=== PATIENT | male | born 1980 | race Caucasian/White ===

== ENCOUNTER 2016-07-24 11:42 | Emergency (ER) | payer MEDICAID | END 2016-07-24 13:05 | disposition home or self-care (01) | DX: S93.601A Unspecified sprain of right foot, initial encounter (principal); X50.9XXA Other and unspecified overexertion or strenuous movements or postures, initial encounter; Y93.39 Activity, other involving climbing, rappelling and jumping off ==

== ENCOUNTER 2017-09-11 08:25 | Emergency (ER) | payer MEDICAID ==
--- NOTE | 2017-09-11 08:51 | ED Physician Documentation ---
PD HPI UPPER EXT INJURY - Stated complaint Stated Complaint: R HAND INJ - Chief complaint Chief Complaint: Ext Problem - History obtained from History obtained from: Patient - History of Present Illness Location: Right, Wrist Type of injury: Fall Where injury occurred: Street Timing - onset: Enter time (1744), Yesterday Timing - duration: Days (1) Timing - details: Abrupt onset, Still present in ED Improved by: Rest, Ice, Immobilization Worsened by: Moving, Palpating Associated symptoms: Numbness, Swelling Contributing factors: No: Anticoagulated Similar symptoms before: Diagnosis (wrist sprain) Recently seen: Not recently seen - Additonal information Additional information: 37-year-old male was skateboarding yesterday and fell he fell onto his right outstretched hand has pain in the wrist and over the thenar eminence and some numbness to the thumb as well. He is able to move his fingers he is able to move his shoulder and elbow without difficulty. He did have an abrasion to the left knee as well he does have a bit of a limp does not feel like there is anything broken. He has never had a broken bone previously. Review of Systems Constitutional: denies: Fever Eyes: denies: Decreased vision Ears: denies: Ear pain Nose: denies: Congestion Throat: denies: Sore throat Respiratory: denies: Dyspnea, Cough GI: denies: Vomiting Skin: denies: Rash Musculoskeletal: reports: Extremity pain, Joint pain, Joint swelling, Pain with weight bearing. denies: Neck pain, Back pain Neurologic: denies: Generalized weakness, Focal weakness, Numbness PD PAST MEDICAL HISTORY - Past Medical History Cardiovascular: Other - Past Surgical History Past Surgical History: Yes Cardiovascular: Other - Present Medications Home Medications: Ambulatory Orders Medication Instructions Recorded Confirmed HYDROcod/ACETAM 5/325 [[place] 5/325] 1 - 2 ea PO Q6H PRN #15 tablet 09/11/17 - Allergies Allergies/Adverse Reactions: Allergies Allergy/AdvReac Type Severity Reaction Status Date / Time No Known Drug Allergies Allergy Verified 09/11/17 08:33 - Social History Does the pt smoke?: No Smoking Status: Never smoker Does the pt drink ETOH?: Yes Does the pt have substance abuse?: Yes - Immunizations Immunizations are current?: Yes - POLST Patient has POLST: No PD ED PE NORMAL - Vitals Vital signs reviewed: Yes (Normal) - General General: Alert and oriented X 3, No acute distress, Well developed/nourished - HEENT HEENT: Atraumatic, PERRL - Neck Neck: Supple, no meningeal sign - Respiratory Respiratory: No respiratory distress - Derm Derm: Normal color, Warm and dry, No rash - Extremities Extremities: No deformity, No edema, Other (There is swelling to the volar surface of the wrist and the thenar eminence. There is pain over the anatomic snuffbox and restriction of movement of the wrist to flexion extension secondary to pain. He is able flex and extend the fingers with pain he has no pain over the elbow or shoulder. Examination of the left knee reveals an abrasion over the patella with some mild point tenderness associated with that there is no evidence of a joint effusion and the ligaments are stable to testing. He has good range of motion.) - Neuro Neuro: No motor deficit, No sensory deficit Eye Opening: Spontaneous Motor: Obeys Commands Verbal: Oriented GCS Score: 15 - Psych Psych: Normal mood, Normal affect Results - Vitals Vitals: Vital Signs - 24 hr 09/11/ 08:31 Temperature 36.6 C Heart Rate 75 Respiratory 16 Rate Blood Pressure 122/72 O2 Saturation 98 Oxygen O2 Source Room air - Rads (name of study) right wrist Radiology: Prelim report reviewed (Impression: Interval new acute versus subacute transverse fracture with minimal displacement in the distal third of the scaphoid. No dislocation or subluxation.), EMP read indepedently, See rad report PD MEDICAL DECISION MAKING - ED course Complexity details: reviewed old records, reviewed results, re-evaluated patient , considered differential, d/w patient ED course: 37-year-old male with a skateboard injury has a nondisplaced right scaphoid fracture is placed into a thumb spica and instructed to follow-up with orthopedics. Departure - Departure Disposition: 01 Home, Self Care Clinical Impression: Nondisplaced fracture of right scaphoid bone Qualifiers: Encounter type: initial encounter Scaphoid bone location: distal pole Fracture type: closed Qualified Code(s): S62.014A - Nondisplaced fracture of distal pole of navicular [scaphoid] bone of right wrist, initial encounter for closed fracture Condition: Stable Instructions: ED Fx Wrist Navicular Conf Follow-Up: Tatiana Parks MD [Primary Care Provider] - [facility] [Provider Group] Prescriptions: HYDROcod/ACETAM 5/325 [[place] 5/325] 1 - 2 ea PO Q6H PRN #15 tablet PRN Reason: Pain Comments: Wear the splint until your followup with orthopedics.
--- NOTE | 2017-09-11 09:28 | XRAY Report ---
EXAM: RIGHT WRIST RADIOGRAPHY EXAM DATE: 09/11/2017 09:02 AM. CLINICAL HISTORY: Lateral right wrist pain post foosh 1 day ago COMPARISON: 11/26/2011. TECHNIQUE: 3 views. FINDINGS: Bones: There is new transverse radiolucent line with mild sclerotic edge, compatible with fracture in the distal third of the scaphoid visualized. There is no abnormal bone marrow density to suggest sami scular bone necrosis. Joints: No significant degenerative arthritis. No subluxations. Soft Tissues: There is new dorsal soft tissue swelling. IMPRESSION: Interval new acute versus subacute transverse fracture with minimal displacement in the d istal third of the scaphoid. No dislocation or subluxation. [facility] Referring Provider Line: [phone] SITE ID: [id number]
--- NOTE | 2017-09-11 09:28 | XRAY Preliminary Report ---
Exam: XR WRIST 4 VIEW RT IMPRESSION: Interval new acute versus subacute transverse fracture with minimal displacement in the d istal third of the scaphoid. No dislocation or subluxation. [facility] SITE ID: [id number]
[2017-09-11 10:25] VITALS: BP 126/67
== END 2017-09-11 10:25 | disposition home or self-care (01) ==
LOC: ED 08:25
DX: S62.014A Nondisplaced fracture of distal pole of navicular [scaphoid] bone of right wrist, initial encounter for closed fracture (principal); V00.131A Fall from skateboard, initial encounter; Y93.51 Activity, roller skating (inline) and skateboarding; Y92.410 Unspecified street and highway as the place of occurrence of the external cause
CPT/HCPCS: 29125; 99283

== ENCOUNTER 2021-07-28 12:25 | Outpatient (CLI) | payer MEDICAID, OTHER ==
--- NOTE | 2021-07-28 12:56 | XRAY Report ---
PROCEDURE: Foot 3 View RT INDICATIONS: RIGHT FOOT PAIN TECHNIQUE: 3 views of the foot were acquired. COMPARISON: None FINDINGS: Bones: No fractures or dislocations. No suspicious bony lesions. Soft tissues: No tibiotalar joint effusion. Achilles tendon appears normal. IMPRESSION: No evidence acute bony abnormality of the right foot. Reviewed by: Ash Mueller MD on 07/28/2021 11:55 AM [facility] Approved by: Ash Mueller MD on 07/28/2021 11:55 AM [facility] Station ID: [id number]
== END 2021-07-28 12:26 | disposition home or self-care (01) ==
LOC: DI.S 12:25
PROVIDERS: ATTEND Physician Assistant
DX: M79.671 Pain in right foot (principal)

== ENCOUNTER 2021-07-30 15:47 | Outpatient (CLI) | payer OTHER ==
--- NOTE | 2021-07-30 17:04 | MRI Report ---
PROCEDURE: Foot RT W/O INDICATIONS: RIGHT FOOT PAIN TECHNIQUE: Noncontrast sagittal T1 spin echo and T2 fast spin echo with fat saturation, long-axis T1 spin echo a nd T2 fast spin echo with fat saturation, short-axis proton density fast spin echo and T2 fast spin e cho with fat saturation through the forefoot. COMPARISON: Right femoral radiograph dated 07/28/2021. FINDINGS: Image quality: Excellent. Bones and joints: There is marrow edema involving distal portion of talus just proximal to the talona vicular joint with internal linear hypointense T1 and T2 signal and cortical disruption involving lan gucci and plantar cortex of distal talus consistent with a nondisplaced fracture in this area. No other area of abnormal marrow signal is seen. No osteochondral injury of talar dome.. Small to moderate ti biotalar and subtalar joint effusion is seen, no gross loose bodies. Mild osteoarthritic changes are seen involving first TMT joint with joint space narrowing, mild subchondral edema and dorsal marginal osteophyte formation. Soft tissues: The visualized plantar foot muscles demonstrate normal signal and bulk. Visualized fl exor and extensor tendons appear intact, without tenosynovitis. No soft tissue ganglion cysts or bur gucci fluid collections. Sagittal images demonstrate no evidence for plantar plate tears. IMPRESSION: 1. Finding is consistent with a nondisplaced fracture involving distal portion of talus with fracture line extending to both dorsal and plantar cortex of talus. 2. No other fracture or dislocation is seen. Small to moderate tibiotalar and subtalar joint effusion , no gross loose bodies. 3. Osteoarthritic changes involving first TMT joint. Reviewed by: Michael Rodriguez MD on 07/30/2021 5:03 PM PST Approved by: Michael Rodriguez MD on 07/30/2021 5:03 PM PST Station ID: [id number]
== END 2021-07-30 15:48 | disposition home or self-care (01) ==
LOC: DI 15:47
PROVIDERS: ATTEND Physician Assistant
DX: M19.071 Primary osteoarthritis, right ankle and foot (principal); M25.474 Effusion, right foot; R93.6 Abnormal findings on diagnostic imaging of limbs

== ENCOUNTER 2021-08-03 15:22 | Emergency (ER) | payer OTHER ==
--- OUTSIDE RECORDS SUMMARY | 2021-08-03 15:33 | EXTERNAL MEDICAL SUMMARY RPT | Continuity of Care Document ---
:1980 Author Organization [facility] Address [address] [place] [address] Phone Allergies No information. Encounters No information. Medications No information. Problems date description facility [id number] Leg Pain [facility] Results No information.
== END 2021-08-03 15:30 | disposition left against medical advice (07) ==
LOC: ED 15:22
DX: Z53.21 Procedure and treatment not carried out due to patient leaving prior to being seen by health care provider (principal)